=== PATIENT | female | born 1990 | race Caucasian/White ===

== ENCOUNTER 2016-09-06 18:34 | Inpatient (IN) | payer BC ==
[~2016-09-06] VITALS: Ht 157.5 cm; Wt 82.3 kg
[~2016-09-06 18:34] MED LIST: CEPH-443 PO; METO10TA92 PO; PREN1TAB49
[2016-09-06 18:46] VITALS: Ht 157.5 cm; Wt 82.3 kg
[2016-09-06] MEDS ORDERED: METHYLERGONOVINE 0.2 MG INJ IM PRN (19:00)
[2016-09-06] MEDS ORDERED: CARBOPROST 250 MCG INJ IM PRN (19:00)
[2016-09-06] MEDS ORDERED: LACTATED RINGER'S 1,000 ML IV PRN (19:00)
[2016-09-06] MEDS ORDERED: OXYTOCIN 30 UNITS/LR 500 ML IV SCH ×3 (19:00→23:00)
[2016-09-06] MEDS ORDERED: MISOPROSTOL 200 MCG TAB PR PRN (19:00)
[2016-09-06] MEDS ORDERED: OXYTOCIN 30 UNITS/LR 500 ML IV PRN (19:00)
[2016-09-06] MEDS ORDERED: LIDOCAINE 1% (MPF) 30 ML INJ INJ PRN (19:00)
[2016-09-06] MEDS: LACTATED RINGER'S 1,000 ML IV SCH ×2 (19:03→22:19)
[2016-09-06 19:29] LABS: ADD SCAN DIFF NO
[2016-09-06 19:32] LABS: EOSINOPHILS % 0.4 % (0.0-7.0); HEMATOCRIT 36.6 % (37.0-47.0); LYMPHOCYTES # 0.8 10^3/ul (0.8-2.9); MEAN CORPUSCULAR HEMOGLOBIN 29.5 pg (29.0-33.0); MEAN CORPUSCULAR HGB CONC 32.8 g/dl (32.0-37.0); MEAN CORPUSCULAR VOLUME 89.9 fl (82.0-101.0); MEAN PLATELET VOLUME 10.6 fl (7.4-10.4); MONOCYTE # 0.4 10^3/ul (0.3-0.9); MONOCYTES % 6.8 % (0.0-11.0); NEUTROPHIL # 4.1 10^3/ul (1.6-7.5); NEUTROPHILS % 77.6 % (39.0-77.0); PLATELET COUNT 275 10^3/UL (140-415); RED BLOOD COUNT 4.07 10^6/ul (4.20-5.40); RED CELL DISTRIBUTION WIDTH 15.2 % (11.5-14.5); WHITE BLOOD COUNT 5.3 10^3/ul (4.8-10.8)
[2016-09-06 19:44] LABS: INR 0.95; PARTIAL THROMBOPLASTIN TIME 26.5 Sec (25.0-35.0); PROTIME 12.7 Sec (12.2-14.2)
[2016-09-06] MEDS ORDERED: FER325 PO (20:27)
[2016-09-06 20:44] LABS: CANNABINOIDS Negative (NEGATIVE)
[2016-09-06 21:00] LABS: BARBITURATES Negative (NEGATIVE); BENZODIAZEPINES Negative (NEGATIVE); COCAINE Negative (NEGATIVE); OPIATES Negative (NEGATIVE)
--- NOTE | 2016-09-06 21:21 | RADRPT ---
PROCEDURE: US OB. CLINICAL INDICATION: 38.4 WKS LABOR TECHNIQUE: Multiple sonographic images of the pelvis were obtained. The images were reviewed on a PACS workstation. COMPARISON: No prior studies are available for comparison. FINDINGS: The cervix length: Indeterminate. There is a single viable intrauterine gestation. Cardiac activity is present with 150 beats per min rocael. There is a cephalic presentation. Measurements were made in order to determine age. The results are as follows: BPD =8.95 cm=36 weeks 2 days plus or minus 3 weeks 1 day. HC =33.4 cm=38 weeks 2 days plus or minus 2 weeks 5 days. AC =35.5 cm=39 weeks 3 days plus or minus 3 weeks 0 days. FL =7.7 cm=39 weeks 3 days plus/minus 3 weeks 1 day. Estimated gestational age of approximately 38 weeks 3 days plus or minus 2 weeks 5 days.. The estimated date of delivery is 09/17/2016.. The EFW = 3606 g plus or minus 141 g . The heart, intracranial contents, spine, stomach, kidneys, bladder and cord insertion are visualized and without abnormality. The placenta is anterior. There is no evidence for an abruption or placenta previa. There is a normal amount of amniotic fluid with an RYNE = not calculated. There are no adnexal masses.. IMPRESSION: Single viable intrauterine gestation of approximately 38 weeks 3 days plus/minus 2 weeks 5 days. Th e estimated date of delivery is 09/17/2016 . Physician Cora Date Time Electronically viewed and signed by Lexx Barry Physician on 09/06/2016 21:21 /
--- NOTE | 2016-09-06 21:24 | RADRPT ---
PROCEDURE: US OB biophysical profile. CLINICAL INDICATION: decreased movements, pain TECHNIQUE: Multiple sonographic images of the pelvis were obtained. The images were reviewed on a PACS workstation. COMPARISON: No prior studies are available for comparison. FINDINGS: There is a single viable intrauterine gestation. Cardiac activity is present with 158 beats per min rocael. There is a vertex presentation. The placenta is anterior. There is no evidence of placental abruption. There is a normal amount of amniotic fluid with an RYNE = 9.8 cm. Biophysical profile: movement 2/2 tone 2/2. breathing 2/2 RYNE 2/2 Total 12/25 RPTAT: AA . IMPRESSION: Normal biophysical profile. . .Jm Diallo MD, MD Date Time Electronically viewed and signed by .Jm Diallo MD, MD on 09/06/2016 21:24 .S/
[2016-09-06] MEDS ORDERED: FENTAnyl 2MCG/ML-ROPIV 0.2% 100 ML ONE (22:01)
[2016-09-06] MEDS ORDERED: FENTAnyl 2MCG/ML-ROPIV 0.2% 100 ML BAG EPI SCH (23:00)
[2016-09-06] MEDS ORDERED: NALOXONE (0.4 MG/ML) INJ IV PRN (23:00)
[2016-09-07] MEDS ORDERED: LACTATED RINGER'S 1,000 ML IV* SCH (02:42)
--- NOTE | 2016-09-07 02:47 | LDN ---
Date/Time of Note Date/Time of Note DATE: 09/07/16 TIME: 02:46 Delivery Summary Weeks of Gestation Placenta Delivered: Spontaneously Meconium: none Episiotomy: No Anesthesia type: Epidural Sponge & Needle done & correct: Yes All needle counts correct: Yes Any foreign bodies felt in the: No Problems: Infant Delivery Information Sex Sex: female Apgars 1 Minute: 9 5 Minute: 9 Suctioning Nose & mouth suctioned at akiko: No Delee suction performed: No Umbilical Cord Umbilical cord with: 3 Vessels Cord presentations: no nuchal cord Cord Blood was obtained: Yes ALYSSA NELSON MD Sep 07, 2016 02:47
[2016-09-07] MEDS ORDERED: CARBOPROST 250 MCG INJ IM PRN (03:00)
[2016-09-07] MEDS ORDERED: SENNA/DOCUSATE NA (8.6MG/50MG) TAB PO PRN (03:00)
[2016-09-07] MEDS ORDERED: OXYTOCIN 30 UNITS/LR 500 ML IV PRN (03:00)
[2016-09-07] MEDS ORDERED: BENZOCAINE 20% 56 ML SPRAY TOP PRN (03:00)
[2016-09-07] MEDS ORDERED: WITCH HAZEL/GLYCERIN PAD PR PRN (03:00)
[2016-09-07] MEDS ORDERED: OXYCODONE/ASPIRIN (4.88/325) TAB PO PRN ×2 (03:00)
[2016-09-07] MEDS ORDERED: METHYLERGONOVINE 0.2 MG INJ IM PRN (03:00)
[2016-09-07] MEDS ORDERED: DIBUCAINE 1% 30 GM OINT PR PRN (03:00)
[2016-09-07] MEDS ORDERED: MISOPROSTOL 200 MCG TAB PR PRN (03:00)
[2016-09-07] MEDS ORDERED: ONDANSETRON 4 MG INJ IV PRN (03:00)
[2016-09-07] MEDS ORDERED: LANOLIN 7 GM TUBE TOP PRN (03:00)
[2016-09-07] MEDS: OXYTOCIN 30 UNITS/LR 500 ML IV SCH ×2 (03:11→07:00)
--- NOTE | 2016-09-07 03:54 | PREOPHP ---
DATE OF ADMISSION: 09/06/2016 HISTORY OF PRESENT ILLNESS: Ms. Shirin Donaldson is a 26-year-old 3, para 2, EDC 09/09/2016 , intrauterine at 39 weeks gestational age who was sent from clinic secondary to labor. I n triage, she was found to be 4 to 5 cm dilated, 80% effaced, -2 station. She denies any vaginal bl eeding or discharge. Her care took place at [facility]. MEDICAL HISTORY: None. MEDICATIONS: vitamins. PAST SURGICAL HISTORY: None. OBSTETRIC HISTORY: x2 vaginal deliveries. GYNECOLOGIC HISTORY: 10, regular 3 to 4 days. Denies any sexually transmitted diseases. Sexually active with 1 partner. FAMILY HISTORY: None. PHYSICAL EXAMINATION: HEENT: Within normal. LUNGS: CTA bilateral. CARDIOVASCULAR: S1, S2, regular rate and rhythm. ABDOMEN: Gravid, nontender. Negative CVA bilateral. EXTREMITIES: Negative edema. No calf tenderness. PELVIC: Vaginal exam 4 to 5 cm dilated, 80% effaced, -2 station. ASSESSMENT: A 26-year-old 3, para 2, intrauterine at term in labor. PLAN: Expected management, Pitocin p.r.n. Dictated By: ALYSSA HUNG/WILLIAM Conf#: [id number] DID#: [id number]
[2016-09-07 05:00] VITALS: BP 106/56; PULSE 102; RESP 18
[2016-09-07] MEDS: IBUPROFEN 600 MG TAB PO SCH ×4 (05:32→23:56)
[2016-09-07 08:00] VITALS: BP 119/59; PULSE 96; RESP 18
[2016-09-07] MEDS: SENNA/DOCUSATE NA (8.6MG/50MG) TAB PO SCH ×2 (08:52→21:04)
[2016-09-07 15:46] VITALS: BP 110/66; PULSE 86; RESP 18
[2016-09-07 19:30] VITALS: BP 118/66; PULSE 89; RESP 19
[2016-09-08] MEDS: IBUPROFEN 600 MG TAB PO SCH ×3 (06:07→17:23)
[2016-09-08 07:35] LABS: ADD SCAN DIFF NO
[2016-09-08 07:39] LABS: BASOPHILS % 0.2 % (0.0-2.0); EOSINOPHILS # 0.1 10^3/ul (0.0-0.5); EOSINOPHILS % 1.8 % (0.0-7.0); HEMATOCRIT 32.4 % (37.0-47.0); LYMPHOCYTES # 1.6 10^3/ul (0.8-2.9); LYMPHOCYTES % 27.6 % (15.0-51.0); MEAN CORPUSCULAR HEMOGLOBIN 29.1 pg (29.0-33.0); MEAN CORPUSCULAR HGB CONC 30.9 g/dl (32.0-37.0); MEAN CORPUSCULAR VOLUME 94.2 fl (82.0-101.0); MEAN PLATELET VOLUME 10.4 fl (7.4-10.4); MONOCYTE # 0.7 10^3/ul (0.3-0.9); MONOCYTES % 11.9 % (0.0-11.0); NEUTROPHIL # 3.3 10^3/ul (1.6-7.5); NEUTROPHILS % 58.1 % (39.0-77.0); PLATELET COUNT 202 10^3/UL (140-415); RED BLOOD COUNT 3.44 10^6/ul (4.20-5.40); RED CELL DISTRIBUTION WIDTH 15.7 % (11.5-14.5); WHITE BLOOD COUNT 5.6 10^3/ul (4.8-10.8)
[2016-09-08 08:40] VITALS: BP 126/68; PULSE 95; RESP 18
[2016-09-08] MEDS: SENNA/DOCUSATE NA (8.6MG/50MG) TAB PO SCH (08:41)
[2016-09-08 16:00] VITALS: BP 113/65; PULSE 100; RESP 18
--- NOTE | 2016-09-08 17:31 | PN ---
Date/Time of Note Date/Time of Note DATE: 09/08/16 TIME: 17:26 OB Subjective Subjective Subjective Status post day 1 OB Objective Objective Objective Patient stable and doing well She has no complaints Afebrile, VSS HEENT: WNL Heart: Rhythm Normal Lungs: Clear Abdomen: WNL (Fundus firm) Extremities: Normal OB Assessment/Plan Other Assessment: day 1 Patient stable and doing well Other plan: DC home today Follow up with Dr. Brand in 2 and 6 weeks TAWANDA LEAHY MD Sep 08, 2016 17:31
--- NOTE | 2016-09-08 17:33 | DS ---
Date/Time of Note Date/Time of Note DATE: 09/08/16 TIME: 17:32 Obstetrical Discharge Record Final Diagnosis Final Diagnosis: Term delivered Other Final Diagnosis Assessment: day 1 Patient stable and doing well Plan: DC home today Follow up with Dr. Brand in 2 and 6 weeks Vaginal Delivery Obstetrical Delivery: Spontaneous Condition on Discharge Physical Assessment Voiding: Yes Breast: Soft, non-tender Fundus: Firm Calf Tenderness: No Patient Condition: Good TAWANDA LEAHY MD Sep 08, 2016 17:33
--- NOTE | 2016-09-08 17:35 | PD.PPDC ---
TAX MANAGER PUBLIC Discharge Instruction Condition Patient Condition: Good Diet Diet: Resume Regular Diet Activity/Restrictions Activity: Normal Activity (No intercourse X 6 weeks) Follow-up Follow-up with Physician: 2, 6, Week/Weeks TAWANDA LEAHY MD Sep 08, 2016 17:35
== END 2016-09-08 20:55 | disposition home or self-care (01) | DRG 775 ==
LOC: L-D 18:34 → PP1 09-07 05:00
PROVIDERS: ADMIT Obstetrics & Gynecology; ATTEND Obstetrics & Gynecology
PROC: 10E0XZZ Delivery of Products of Conception, External Approach (ICD-10-PCS; principal; 2016-09-07)
DX: O80 Encounter for full-term uncomplicated delivery (principal); Z37.0 Single live birth; Z3A.39 39 weeks gestation of pregnancy
CPT/HCPCS: 62319; 76815; 76818; 80307; 85025; 85610; 85730; 86592; 86900; 86901; 87340; A4310; J2590; J3010; J7120

== ENCOUNTER 2017-09-26 05:50 | Inpatient (IN) | END 2017-09-28 18:15 | disposition home or self-care (01) | DRG 775 ==

== ENCOUNTER 2019-02-02 15:44 | Emergency (ER) | payer OTHER ==
[~2019-02-02] VITALS: Ht 157.5 cm; Wt 74.1 kg
[~2019-02-02 15:44] MED LIST changes: +IBUP-1542 PO; -METO10TA92 PO; +SULF1TAB31 PO
[2019-02-02 16:11] VITALS: Ht 157.5 cm; Wt 74.1 kg
[2019-02-02] MEDS ORDERED: LIDOCAINE 1% (MDV) 20 ML INJ SC ONE (17:00)
[2019-02-02 18:38] VITALS: BP 128/81; PULSE 88; RESP 18
== END 2019-02-02 18:39 | disposition home or self-care (01) ==
LOC: FTE 15:44
DX: L05.01 Pilonidal cyst with abscess (principal)
CPT/HCPCS: 10080; Z7610